=== PATIENT | female | born 1965 | race Caucasian/White ===

== ENCOUNTER → 2020-01-27 13:40 | Outpatient (POV) | payer BC, SELFPAY ==
[2020-01-27 14:03] VITALS: BMI 21.3
--- NOTE | 2020-01-27 15:32 | HMH.PMCON ---
Assessment and Plan (1) Degenerative joint disease (DJD) of lumbar spine Status: Chronic Category: Medical Code(s): M47.816 - Spondylosis without myelopathy or radiculopathy, lumbar region (2) Radiculopathy, lumbar region Status: Chronic Category: Medical Code(s): M54.16 - Radiculopathy, lumbar region - Assessment and plan all Dx Assessment and Plan for all problems:: We will schedule the patient for an L4-L5 lumbar epidural steroid injection given her symptomology I do believe she would benefit from this. We will also request her MRI results from her primary care physician. Patient's been instructed to call the office if she has any issues prior to her next appointment. Dr. Poon has reviewed this note and agrees with this plan of care. This note was dictated using voice recognition software and may contain errors or omissions HPI - Data of Consult Consult date: 01/27/20 Requesting Physician: Nandini Durham APRN Primary Care Provider: Primo Lozano - Consult Narrative Reason for consult: Back pain leg pain History of present illness: Ms. Ashford is a 55 year old female presents today for consultation regards to her low back and leg pain. Patient states that she has had low back and leg pain since she was a child. Patient states she has scoliosis. Patient used to go to a chiropractor which was beneficial however now it is not as beneficial. Patient has been to pain management in the past however she states that this was over a year ago. Patient does smoke marijuana however she is recently stopped due to her having custody of her grandchildren. Patient rates her pain today an 8 out of 10. Patient does have an x-ray in her notes however there is no MRI. X-ray is grossly normal. We will request her MRI from her primary care physician. Patient is pain in her low back radiating into her left leg all the way to her toes. We discussed epidural steroid injections. She is not on any anticoagulation therapy. CC: Nandini Durham APRN [facility] History I have reviewed the patient's past medical history: Yes Medical History: Denies:: Cancer, Diabetes Mellitus Type 1, Diabetes Mellitus Type 2, MRSA *Have you ever received a pneumonia vaccine?: Yes *Have you received a flu vaccine this season?: Yes Other Medical History: Reports: Arthritis Other Surgeries: Yes: Appendectomy, Hysterectomy-Total, Other (right foot) Amputation: No Fractures: No - *Social History Smoking Status: Current every day smoker Tobacco Type: cigarettes # Packs/Day (cigarettes): 1 Alcohol Intake: never Substance Use Type: marijuana *Occupational Status:: unemployed Housing: house Household Members: spouse, children *Travel in the last 8 weeks: None Family Hx:: Non-contributory Review of Systems - Review of Systems ROS General: no recent weight change, no fever, no sleep disturbances Respiratory: no cough, no shortness of air, no recurring pulmonary infections Cardiovascular/Peripheral Vascular: No chest pain, No palpitations, no edema, no shortness of breath. Gastrointestinal: no new onset incontinence, normal bowel movements reported Genitourinary: no new onset incontinence Musculoskeletal: Back pain, leg pain Psychiatric: normal mood/ affect Neurological: [denies new onset weakness in extremities], [denies new onset balance issues] Meds Home Medications Medication Instructions Recorded Confirmed Type Albuterol Sulfate [Proventil Hfa] 6.7 gm IH Q4H 01/27/20 01/27/20 History Aspirin [Aspirin 325mg Tab] 325 mg PO DAILY 01/27/20 01/27/20 History Budesonide/Formoterol Fumarate 2 puffs IH BID 01/27/20 01/27/20 History [Symbicort 160-4.5 Mcg Inhaler] Buspirone HCl [Buspar 5mg tablet] 15 mg PO BID 01/27/20 01/27/20 History Fluoxetine HCl [Prozac] 40 mg PO DAILY 01/27/20 01/27/20 History Fluticasone Propionate [Flonase 2 spr NS DAILY 01/27/20 01/27/20 History 50mcg nasal spray 16gm] Gabapentin [Gabapent
== END ==
PROVIDERS: PCP Family Medicine; Visit Provider Clinical Nurse Specialist Family Health
DX: M47.896 Other spondylosis, lumbar region (principal); M54.16 Radiculopathy, lumbar region
CPT/HCPCS: 99202

== ENCOUNTER 2020-02-21 09:52 | Day surgery (SDC) | payer BC, SELFPAY ==
[2020-02-21 10:27] VITALS: BP 142/94; PULSE 80; RESP 18; TEMP 36.6; O2SAT 99; BMI 22.9
[2020-02-21 11:17] VITALS: BP 144/79; PULSE 89; RESP 18; O2SAT 98
[2020-02-21 11:19] VITALS: BP 149/78; PULSE 85; RESP 18; O2SAT 98
--- NOTE | 2020-02-21 11:25 | HMH.PMPROC ---
- Procedure Date: 02/21/20 Time: 11:25 Anesthesiologist:: Royce Poon MD Complications:: None Pre-procedure Diagnosis:: Generative disc disease of lumbar spine with lumbar radiculopathy symptoms Post-procedure Diagnosis:: Same Indications for Procedure:: Patient is a pleasant 55-year-old white female who we are treating for low back pain with lumbar radicular symptoms. She does have increasing low back pain and leg pain. Left leg is worse than right leg. We will do a lumbar epidural steroid injection today to help her with her pain symptoms. Procedure Details:: Lumbar epidural steroid injection under fluoroscopy Informed consent was obtained and the risk and benefits of the procedure was explained to the patient. The patient was taken to the procedure room. The patient was placed prone on the procedure table. The patient was prepped and draped in sterile fashion. C-arm fluoroscopy was used to view the lumbar spine. Skin and subcutaneous tissues were anesthetized using lidocaine. I placed an 18-gauge epidural needle and advanced into the L4-L5 interspace using fluoroscopic guidance and [id number] to air. After confirmation of needle placement in the epidural space with dye I injected 2 mL of lidocaine 1.5% with Depo-Medrol 80 mg. Patient tolerated the procedure well with no complications. Plan and Disposition:: We will follow-up with her in 2 weeks. Will reevaluate her symptoms at that time.
[2020-02-21 11:30] VITALS: BP 128/86; PULSE 79; RESP 18; O2SAT 99
== END 2020-02-21 11:31 | disposition home or self-care (01) ==
LOC: SC.PAINP 09:53
PROVIDERS: PCP Family Medicine; Visit Provider Anesthesiology
DX: M51.16 Intervertebral disc disorders with radiculopathy, lumbar region (principal); J44.9 Chronic obstructive pulmonary disease, unspecified; F41.9 Anxiety disorder, unspecified; F32.9 Major depressive disorder, single episode, unspecified; Z72.0 Tobacco use
CPT/HCPCS: 62323; J1040; Q9966

== ENCOUNTER → 2020-03-26 14:10 | Outpatient (POV) | payer BC, SELFPAY ==
[2020-03-26 14:25] VITALS: BP 125/74; PULSE 74; RESP 18; TEMP 36.8; O2SAT 98; BMI 23.9
--- NOTE | 2020-03-26 14:47 | P.CONS_ITS ---
[facility] Pain Management SOAP Note Subjective:: She is a pleasant 55-year-old white female who presents today for follow-up after lumbar epidural steroid injection. Patient did not get any relief from it actually her pain became worse. She rates her pain now -10 out of 10. Patient is continuing chiropractic therapy, physical therapy, medication regimen. Patient has a long discussion in regards to different pain tolerates. Patient has difficulty with twisting and movement. Patient is positive facet loading. Patient and I discussed a medial branch block. She is interested in pursuing this.. ROS General: no recent weight change, no fever, no sleep disturbances Respiratory: no cough, no shortness of air, no recurring pulmonary infections Cardiovascular/Peripheral Vascular: No chest pain, No palpitations, no edema, no shortness of breath. Gastrointestinal: no new onset incontinence, normal bowel movements reported Genitourinary: no new onset incontinence Musculoskeletal: Back pain Psychiatric: normal mood/ affect Neurological: [denies new onset weakness in extremities], [denies new onset balance issues] Objective:: Physical Exam General: Alert and oriented x3, no acute distress, pleasant and cooperative, [on room air] Lungs: Resps E/U, Symmetrical chest expansion, Eyes: PERRL Musculoskeletal: Flexion and extension of lumbar spine somewhat guarded secondary to pain, deep tendon reflexes normal, strength in upper and lower extremities [5/5], [abnormal gait noted] Neurological: speech clear, middle school art teacher equal, no gross sensory deficits Assessment:: Degenerative disc disease lumbar spine lumbar facet arthropathy, spondylosis Plan:: We will call in the patient prednisone 20 mg 1 p.o. twice daily to help with her pain at this time. We will also set her up for bilateral L4-L5 L5-S1 medial branch block. She may be a neurotomy candidate. Patient has failed over 6 months of conservative therapy including physical therapy, chiropractic therapy, medications. I will follow-up with her after her injection we discussed that it is diagnostic in nature. Patient's been instructed to call the office if she has any issues prior to her next appointment. She is not on any anticoagulation therapy. Dr. Poon has reviewed this note and agrees with this plan of care. This note was dictated using voice recognition software and may contain errors or omissions [facility] History I have reviewed the patient's past medical history: Yes Medical History: Denies:: Cancer, Diabetes Mellitus Type 1, Diabetes Mellitus Type 2, MRSA, Seizures *Have you ever received a pneumonia vaccine?: Yes *Have you received a flu vaccine this season?: Yes Other Medical History: Reports: Arthritis. Denies: Blood Transfusion Reaction Other Surgeries: Yes: Appendectomy, Hysterectomy-Total, Other (right foot) Amputation: No Fractures: No - *Social History Smoking Status: Current every day smoker Tobacco Type: cigarettes # Packs/Day (cigarettes): 1 Alcohol Intake: never Substance Use Type: marijuana *Occupational Status:: other Housing: house Household Members: spouse *Travel in the last 8 weeks: None Family Hx:: Non-contributory
== END ==
PROVIDERS: PCP Family Medicine; Visit Provider Clinical Nurse Specialist Family Health
DX: M51.36 Other intervertebral disc degeneration, lumbar region (principal); M47.816 Spondylosis without myelopathy or radiculopathy, lumbar region; M54.06 Panniculitis affecting regions of neck and back, lumbar region
CPT/HCPCS: 99212; G0463

== ENCOUNTER 2020-04-03 11:14 | Day surgery (SDC) | payer BC, SELFPAY ==
[2020-04-03 12:00] VITALS: BP 131/78; PULSE 92; RESP 18; TEMP 36.8; O2SAT 98; BMI 23.5
[2020-04-03 12:21] VITALS: BP 165/74; PULSE 56; RESP 18
[2020-04-03 12:22] VITALS: BP 155/71; PULSE 56; RESP 18; O2SAT 99
--- NOTE | 2020-04-03 12:38 | HMH.PMPROC ---
- Procedure Date: 04/03/20 Time: 12:38 Anesthesiologist:: Royce Poon MD Complications:: None Pre-procedure Diagnosis:: Degenerative disc disease of lumbar spine with lumbar facet arthropathy and lumbar spondylosis Post-procedure Diagnosis:: Same Indications for Procedure:: This patient is a pleasant 55-year-old white female who we are treating for low back pain with lumbar spondylosis and lumbar facet arthropathy. She did not get any relief from previous lumbar epidural steroid injection. She has increasing pain in her low back worse with extension and twisting. She is tender over the facet joints of L4-5 and L5-S1. We will do bilateral lumbar facet injections of L4-5 and L5-S1 under fluoroscopy today. Procedure Details:: Lumbar medial branch block Informed consent was obtained and the risks and benefits of the procedure was explained to the patient. The back was prepped using ChloraPrep. The skin and subcutaneous tissues were anesthetized using lidocaine. I placed 22-gauge spinal needles into the facet joint/medial branches of 5 and L5-S1 bilaterally. Needle placement was confirmed with dye. After this we injected 3 mL bupivacaine 0.25% and Depo-Medrol 20 mg into each facet joint/medial branch of L4-L5 and L5-S1 bilaterally. We used a total of 80 mg Depo-Medrol for both levels bilaterally. The patient tolerated the procedure well with no complications. Plan and Disposition:: We will follow-up with her in 2 weeks. Will reevaluate symptoms at that time. If these are successful may seek approval for RF ablation to the same levels of L4-5 and L5-S1 bilaterally. We will also order bilateral hip x-rays for her.
[2020-04-03 12:40] VITALS: BP 130/88; PULSE 86; RESP 18; O2SAT 98
== END 2020-04-03 12:40 | disposition home or self-care (01) ==
LOC: SC.PAINP 11:16
PROVIDERS: PCP Family Medicine; Visit Provider Anesthesiology
DX: M47.896 Other spondylosis, lumbar region (principal); M54.06 Panniculitis affecting regions of neck and back, lumbar region; M51.16 Intervertebral disc disorders with radiculopathy, lumbar region
CPT/HCPCS: 64493; 64494; J1030; Q9966

== ENCOUNTER → 2020-04-30 14:50 | Outpatient (POV) | payer BC, SELFPAY ==
--- NOTE | 2020-04-30 15:32 | HMH.VVPMSO ---
[facility] Virtual Visit SOAP Consent for virtual visit:: With the recent concerns about the COVID-19, we are trying to minimize exposure to you by shifting to telehealth appointments whenever possible. It restricts me from seeing you in person, but the trade off is protecting you during this pandemic. Can you see and hear me okay, and do you consent to this option? If not, I would be happy to see if we can reschedule your appointment in the future, when feasible. Has patient consented to this virtual visit?: Yes Subjective:: Pleasant 55-year-old white female who we are treating for low back pain with lumbar spondylosis lumbar facet arthropathy. She has not gotten any relief from previous lumbar epidural steroid injection she is following up today after medial branch block. Patient did not get any relief from this. She is actually having increased pain. She is also having hip pain she had an x-ray that was unremarkable. Patient and I discussed updated imaging I do believe we need to get an MRI to help determine if she might need a surgical consultation. ROS General: no recent weight change, no fever, no sleep disturbances Respiratory: no cough, no shortness of air, no recurring pulmonary infections Cardiovascular/Peripheral Vascular: No chest pain, No palpitations, no edema, no shortness of breath. Gastrointestinal: no new onset incontinence, normal bowel movements reported Genitourinary: no new onset incontinence Musculoskeletal: Back pain, hip pain Psychiatric: normal mood/ affect Neurological: [denies new onset weakness in extremities], [denies new onset balance issues] Objective:: Physical exam: Constitutional: Healthy appearing, well-developed, alert, in no acute distress Psychiatric: Judgment and insight intact, Alert and oriented x4 Mood and affect: Mood normal, affect appropriate Head and face: Inspection: Normocephalic atraumatic, extraocular movement intact Respiratory: Breathing nonlabored, nondyspneic Cardiovascular: No cyanosis, clubbing, or edema observed Skin: Head and neck: Skin with no lesions or rash observed Gait: Able to walk without assistive device: Able to heel and toe walk Neurologic: Sensation grossly intact per patient Musculoskeletal: Decreased range of motion lumbar spine Assessment:: Degenerative disc disease lumbar spine lumbar facet arthropathy lumbar spondylosis Plan:: We will schedule the patient for a lumbar MRI. We will follow up with her after this reassess her symptoms at that time she has been instructed to call the office if she has any issues prior to her next appointment. Dr. Poon has reviewed this note and agrees with this plan of care. This note was dictated using voice recognition software and may contain errors or omissions this encounter was performed as a telemedicine visit via secure 2 way video and audio to minimize risk and transmission of Covid-19. The patient and we understand the limitations of a telemedicine visit including inability to check reflexes, possibly missing subtle findings on physical exam. Alternative options were presented to the patient and the patient elected to proceed with the visit. We specifically discussed risk factors for Covid-19 including age, heart or lung disease, diabetes, immunosuppression and travel. We also discussed that NSAIDs may worsen Covid-19 infection symptoms and that they should not be used to treat Covid-19 symptoms. Patient was also informed that corticosteroids in any form oral or injectable will decrease immune response and may increase risk of Covid-[address] Poon has reviewed this patient's chart and this note and agrees with plan of care. Patient has been instructed to call the office if they have any issues prior to the next appointment. Time In:: 15:20 Time Out:: 15:30 [facility] History I have reviewed the patient's past medical history: Yes Medical History: Denies:: Cancer, Diabetes Mellitus Type 1, Diabe
== END ==
PROVIDERS: PCP Family Medicine; Visit Provider Clinical Nurse Specialist Family Health
DX: M51.36 Other intervertebral disc degeneration, lumbar region (principal); M47.816 Spondylosis without myelopathy or radiculopathy, lumbar region; M54.06 Panniculitis affecting regions of neck and back, lumbar region
CPT/HCPCS: 99212; G0463